=== PATIENT | male | born 1950 | race Caucasian/White ===

== ENCOUNTER 2019-02-15 20:13 | Emergency (ER) | payer MEDICARE, BC ==
--- NOTE | 2019-02-15 20:18 | ERPHSYRPT ---
- History of Present Illness Time Seen by Provider: 02/15/19 20:18 Source: patient, family Exam Limitations: no limitations Physician History: 68 y/o white male was riding his horse. dog spooked the horse. pt fell off horse onto his right ribs and right shoulder. denies head and neck injury. pt states he has no left side pain and no pain below right ribs. denies soa and denies abd pain. Occurred: just prior to arrival Reason for Fall: fell from height (riding a horse) Injuries/Pain Location: upper extremity (right shoulder), chest (right ) Loss of Consciousness: no loss of consciousness Quality: aching Severity of Pain-Max: moderate Severity of Pain-Current: moderate Modifying Factors: Improves With: movement Associated Symptoms (Fall): chest pain (right shes wall ), extremity injury ( right shoulder), muscle spasms Allergies/Adverse Reactions: No Known Drug Allergies Allergy (Unverified 02/15/19 20:35) - Review of Systems Constitutional: No Symptoms Eyes: No Symptoms Ears, Nose, & Throat: No Symptoms Respiratory: No Symptoms Cardiac: No Symptoms Abdominal/Gastrointestinal: No Symptoms Genitourinary Symptoms: No Symptoms Musculoskeletal: Fall, Injury Skin: Other (abrasions right post shoulder) Neurological: No Symptoms Psychological: No Symptoms Endocrine: No Symptoms Hematologic/Lymphatic: No Symptoms Immunological/Allergic: No Symptoms All Other Systems: Reviewed and Negative - Past Medical History Neurological History: No Pertinent History ENT History: No Pertinent History Cardiac History: No Pertinent History Respiratory History: No Pertinent History Endocrine Medical History: No Pertinent History Musculoskeletal History: No Pertinent History GI Medical History: No Pertinent History History: No Pertinent History Psycho-Social History: No Pertinent History Male Reproductive Disorders: No Pertinent History - Past Surgical History Neuro Surgical History: No Pertinent History Cardiac: No Pertinent History Respiratory: No Pertinent History Gastrointestinal: No Pertinent History Genitourinary: No Pertinent History Musculoskeletal: No Pertinent History Male Surgical History: No Pertinent History - Nursing Vital Signs Nursing Vital Signs: Initial Vital Signs Temperature 97.8 F 02/15/19 20:26 Pulse Rate 77 02/15/19 20:26 Respiratory Rate 16 02/15/19 20:26 Blood Pressure 156/75 02/15/19 20:26 O2 Sat by Pulse Oximetry 98 02/15/19 20:26 Pain Scale Pain Intensity 6 - Katelin Coma Score Best Eye Response (Katelin): (4) open spontaneously Best Verbal Response (Katelin): (5) oriented Best Motor Response (Katelin): (6) obeys commands Katelin Total: 15 - Physical Exam General Appearance: mild distress, alert, anxiety Head Injury: no evidence of injury, No active bleeding, No Garcia's Sign, No lacerations, No raccoon eyes Eye Exam: PERRL/EOMI, eyes nml inspection ENT Exam: airway nml, nml ext.inspection Neck Exam: supple, trachea midline, full range of motion, normal alignment, normal inspection Respiratory/Chest Exam: normal breath sounds, rib tenderness (right side), No respiratory distress, No ecchymosis, No decreased breath sounds, No accessory muscle use, No subcutaneous emphysema Cardiovascular Exam: normal heart sounds, regular rate/rhythm Gastrointestinal Exam: soft, normal bowel sounds, No tenderness, No guarding Rectal Exam: not done Back Exam: normal range of motion, other (right posterior shoulder abrasion), No CVA tenderness, No vertebral tenderness Extremity Exam: pelvis stable, tenderness (right shoulder), other (abrasion right post shoulder) Neurologic Exam: alert, oriented x 3, cooperative, 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, normal mood/affect, nml cerebellar function, nml station & gait, sensation nml Skin Exam: abrasion (see above) - Course Nursing assessment & vital signs reviewed: Yes Ordered Tests: Active Orders 24 hr Category Date Time Status RIBS UNILATERAL Stat Exams 02/15/19 21:18 Taken SHOULDER Stat Exams 02/15/19 20:49 Taken Medication Summary Discontinued Medications Generic Name Dose Route Start Last Admin Trade Name Annabel PRN Reason Stop Dose Admin Hydromorphone HCl 1 mg 02/15/19 20:51 02/15/19 21:06 Hydromorphone 1 Mg/Ml Ampule IM 02/15/19 20:52 1 mg STAT ONE Administration Hydromorphone HCl Confirm 02/15/19 20:58 Hydromorphone 1 Mg/Ml Ampule Administered 02/15/19 20:59 Dose 1 mg .ROUTE .STK-MED ONE Lidocaine HCl 20 ml 02/15/19 20:54 02/15/19 21:00 Xylocaine 2% Jelly TOP 02/15/19 20:55 20 ml STAT ONE Administration Lidocaine HCl Confirm 02/15/19 20:55 Xylocaine 2% Uro-Jet Administered 02/15/19 20:56 Dose 400 mg .ROUTE .STK-MED ONE Promethazine HCl 12.5 mg 02/15/19 20:51 02/15/19 21:07 Phenergan 25 Mg Inj IM 02/15/19 20:52 12.5 mg STAT ONE Administration Promethazine HCl Confirm 02/15/19 20:57 Phenergan 25 Mg Inj Administered 02/15/19 20:58 Dose 25 mg .ROUTE .STK-MED ONE - Progress Progress Note: 02/15/19 21:38 rib xrays right side-displaced fx of 6th rib; nondisplaced 10th rib right shoulder xray-degenerative changes. no acute fx or dislocation Counseled pt/family regarding: diagnosis, need for follow-up, rad results - Departure Departure Disposition: Home Clinical Impression: Ribs, multiple fractures, Fall Condition: Stable Critical Care Time: No Referrals: Provider,Unknown [Primary Care Provider] - Additional Instructions: wash site daily with soap and water. apply antibiotic ointment daily. follow up with primary doctor for further management and pain control. add ibuprofen 600mg orally 3 times daily with food Plan of Treatment: pain control and topical antibiotics Prescriptions: Oxycodone HCl/Acetaminophen [Percocet 5-325 mg Tablet] 1 each PO Q6H PRN PRN # 12 tablet MDD 4 PRN Reason: Pain Carisoprodol 350 mg [Soma 350 mg] 350 mg PO Q8H PRN PRN #10 tablet PRN Reason: Muscle Spasms
[2019-02-15 20:35] VITALS: BP 156/75
[2019-02-15] MEDS ORDERED: Hydromorphone 1 mg/ml Ampule IM ONE (20:51)
[2019-02-15] MEDS ORDERED: Phenergan 25 MG INJ IM ONE (20:51)
[2019-02-15] MEDS ORDERED: Xylocaine 2% JELLY TOP ONE (20:54)
[2019-02-15] MEDS ORDERED: XYLOCAINE 2% Uro-Jet ONE (20:55)
[2019-02-15] MEDS ORDERED: Phenergan 25 MG INJ ONE (20:57)
[2019-02-15] MEDS ORDERED: Hydromorphone 1 mg/ml Ampule ONE (20:58)
[2019-02-15 22:02] VITALS: PULSE 75; O2SAT 100
--- NOTE | 2019-02-16 08:52 | XRAY ---
Indication: Rib pain following fall off horse. Comparison: None 3 views of the right shoulder demonstrates moderate AC degenerative arthropathy, partial calcification coracoclavicular ligament, and a few right lung calcified granulomas. Rib fractures reported separately. No other bony, articular, or soft tissue abnormalities.
--- NOTE | 2019-02-16 08:52 | XRAY ---
Indication: Rib pain following fall off horse. Comparison: None 2 views of the right ribs demonstrates displaced posterior lateral 6 rib fracture and nondisplaced posterior lateral 10 rib fracture. Incidental moderate AC degenerative arthropathy, partial calcification coracoclavicular ligament, and a few right lung calcified granulomas. No other bony, articular, or soft tissue abnormalities.
== END 2019-02-15 22:16 | disposition home or self-care (01) ==
LOC: ED 20:13
DX: S22.49XA Multiple fractures of ribs, unspecified side, initial encounter for closed fracture (principal); V80.010A Animal-rider injured by fall from or being thrown from horse in noncollision accident, initial encounter; Y93.52 Activity, horseback riding; R07.9 Chest pain, unspecified; M25.511 Pain in right shoulder; F41.9 Anxiety disorder, unspecified; S40.211A Abrasion of right shoulder, initial encounter
CPT/HCPCS: 71100; 73030; 96372; 99284; J1170; J2550